=== PATIENT | male | born 1930 | race Hispanic/Latino ===

== ENCOUNTER 2021-08-16 17:07 | Emergency (ER) | payer OTHER ==
[~2021-08-16] VITALS: Ht 172.7 cm; Wt 65.8 kg
[2021-08-16 17:12] VITALS: BP 169/83
[2021-08-16 17:55] LABS: APPEARANCE,URINE CLOUDY (CLEAR); BILIRUBIN,URINE NEGATIVE (NEGATIVE); COLOR,URINE ORANGE (YELLOW); GLUCOSE, URINE (UA) NEGATIVE (NEGATIVE); KETONES,URINE NEGATIVE (NEGATIVE); LEUKOCYTE ESTERASE ,URINE NEGATIVE (NEGATIVE); NITRATE,URINE NEGATIVE (NEGATIVE); OCCULT BLOOD,URINE MODERATE (NEGATIVE); PROTEIN,URINE TRACE mg/dL (NEGATIVE); UROBILINOGEN,URINE 0.2 mg/dL (0.2-1.0)
[2021-08-16 18:02] LABS: BACTERIA,URINE Few /HPF (None Seen); RBC,URINE >100 /HPF (0-1); SQUAMOUS EPITHELIAL CELL,UR Rare /HPF (0-2)
== END 2021-08-16 18:34 | disposition home or self-care (01) ==
LOC: EDH 17:07
DX: R33.9 Retention of urine, unspecified (principal); Z88.0 Allergy status to penicillin; Z90.89 Acquired absence of other organs; Z90.49 Acquired absence of other specified parts of digestive tract; Z98.890 Other specified postprocedural states
CPT/HCPCS: 81001

== ENCOUNTER 2021-10-19 12:09 | Observation (INO) | payer OTHER ==
[~2021-10-19] VITALS: Ht 172.7 cm; Wt 60.2 kg
[2021-10-19 12:34] LABS: BASOPHILS % (AUTO) 0.4 % (0.0-5.0); EOSINOPHILS % (AUTO) 1.9 % (0.0-8.0); HEMATOCRIT 36.7 % (42-54); LYMPHOCYTES % (AUTO) 21.5 % (21.0-51.0); MEAN CORPUSCULAR HEMOGLOBIN 28.8 pg (27.0-33.0); MEAN CORPUSCULAR HGB CONC 31.9 g/dL (32.0-36.0); MEAN CORPUSCULAR VOLUME 90.4 fL (79-99); MONOCYTES % (AUTO) 17.3 % (3.0-13.0); NEUTROPHILS % (AUTO) 58.7 % (40.0-77.0); PLATELET COUNT (AUTO) 150 K/uL (130-400); RED BLOOD CELL COUNT(AUTO) 4.06 MIL/uL (4.50-6.20); RED CELL DISTRIBUTION WIDTH 13.7 % (11.0-15.5); WHITE BLOOD COUNT (AUTO) 5.2 K/uL (4.8-10.8)
[2021-10-19 12:44] LABS: POTASSIUM 5.8 mmol/L (3.5-5.1)
[2021-10-19 12:49] LABS: ALBUMIN 3.4 g/dL (3.5-5.0); TOTAL PROTEIN, SERUM 7.4 g/dL (6.0-8.3)
[2021-10-19] MEDS ORDERED: 0.9% NACL 500ML IV.SOLN 500 ML IV ONE (13:30)
[2021-10-19] MEDS ORDERED: NA ZIRCON CYCLOSIL(LOKELMA 10GM) PO ONE (13:30)
[2021-10-19 14:00] LABS: APPEARANCE,URINE CLEAR (CLEAR); BILIRUBIN,URINE NEGATIVE (NEGATIVE); COLOR,URINE YELLOW (YELLOW); GLUCOSE, URINE (UA) NEGATIVE (NEGATIVE); KETONES,URINE NEGATIVE (NEGATIVE); LEUKOCYTE ESTERASE ,URINE SMALL (NEGATIVE); NITRATE,URINE POSITIVE (NEGATIVE); OCCULT BLOOD,URINE NEGATIVE (NEGATIVE); PROTEIN,URINE NEGATIVE (NEGATIVE); UROBILINOGEN,URINE 0.2 mg/dL (0.2-1.0)
[2021-10-19 14:08] LABS: BACTERIA,URINE Rare /HPF (None Seen); RBC,URINE 0-1 /HPF (0-1); SQUAMOUS EPITHELIAL CELL,UR Rare /HPF (0-2); WBC,URINE 0-1 /HPF (0-1)
[2021-10-19] MEDS ORDERED: ONDANSETRON 4MG INJ IVP PRN (15:00)
[2021-10-19] MEDS ORDERED: HYDRALAZINE 20MG/ML VIAL IV PRN (15:00)
[2021-10-19] MEDS ORDERED: ACETAMINOPHEN 325 MG TAB PO PRN (15:00)
[2021-10-19] MEDS ORDERED: ALBUTEROL 0.083% 2.5 MG/3 ML INH IH PRN (15:00)
[2021-10-19] MEDS ORDERED: LACTULOSE 20 GM/30 ML UDCUP PO PRN (15:00)
[2021-10-19] MEDS ORDERED: KAYEXALATE 15GM/60ML PO PRN (15:00)
[2021-10-19] MEDS ORDERED: LABETALOL 20MG SYG IV PRN (15:00)
[2021-10-19] MEDS: DOXYCYCLINE 100MG+NS 250ML IV SCH ×3 (15:30→16:22)
[2021-10-19] MEDS: INSULIN HUMULIN R 100 UNIT/ML 3ML SQ SCH ×2 (16:20→21:00)
[2021-10-19 19:30] VITALS: BP 138/46
[2021-10-19] MEDS: SODIUM BICARBONATE 650 MG TAB PO SCH (21:53)
[2021-10-19 23:00] VITALS: BP 130/56
[2021-10-20] MEDS ORDERED: 0.9% NACL 250ML 250 ML ONE (03:09)
[2021-10-20] MEDS: DOXYCYCLINE 100MG+NS 250ML IV SCH (03:19)
[2021-10-20 04:30] VITALS: BP 122/53
[2021-10-20 05:17] LABS: BASOPHILS % (AUTO) 0.5 % (0.0-5.0); EOSINOPHILS % (AUTO) 3.8 % (0.0-8.0); HEMATOCRIT 32.5 % (42-54); LYMPHOCYTES % (AUTO) 21.2 % (21.0-51.0); MEAN CORPUSCULAR HEMOGLOBIN 29.1 pg (27.0-33.0); MONOCYTES % (AUTO) 18.8 % (3.0-13.0); NEUTROPHILS % (AUTO) 55.2 % (40.0-77.0); PLATELET COUNT (AUTO) 132 K/uL (130-400); RED BLOOD CELL COUNT(AUTO) 3.57 MIL/uL (4.50-6.20); RED CELL DISTRIBUTION WIDTH 13.8 % (11.0-15.5); WHITE BLOOD COUNT (AUTO) 6.6 K/uL (4.8-10.8)
[2021-10-20 05:31] LABS: CREATININE 1.8 mg/dL (0.5-1.5); MAGNESIUM 1.8 mg/dL (1.80-2.40); PHOSPHORUS 3.1 mg/dL (2.5-4.9); POTASSIUM 5.8 mmol/L (3.5-5.1)
[2021-10-20] MEDS ORDERED: INSULIN HUMULIN R 100 UNIT/ML 3ML IV ONE (06:51)
[2021-10-20] MEDS: INSULIN HUMULIN R 100 UNIT/ML 3ML SQ SCH ×4 (06:53→21:00)
[2021-10-20] MEDS ORDERED: DEXTROSE 50%-WATER 50 ML DISP.SYRIN IV ONE (07:00)
[2021-10-20 07:29] VITALS: BP 128/52
[2021-10-20] MEDS: PANTOPRAZOLE 40 MG TAB DR PO SCH (08:12)
[2021-10-20] MEDS: SODIUM BICARBONATE 650 MG TAB PO SCH ×2 (08:12→20:39)
[2021-10-20] MEDS: TAMSULOSIN HCL 0.4 MG CAP.ER.24H PO SCH (08:13)
[2021-10-20] MEDS: Vitamin B Complex/Vit C/Folic Acid PO SCH (08:14)
[2021-10-20] MEDS: SODIUM BICARB 50MEQ 50ML VIAL IV SCH (08:18)
[2021-10-20] MEDS ORDERED: ENAL10TA18 PO (11:01)
[2021-10-20] MEDS ORDERED: CHOL100046 PO (11:03)
[2021-10-20] MEDS ORDERED: AMYL1CAP63 PO (11:04)
[2021-10-20] MEDS ORDERED: OMEP20CA12 PO (11:04)
[2021-10-20 12:00] VITALS: BP 115/56
[2021-10-20] MEDS: 0.9%NACL 1000ML 1,000 ML IV SCH ×3 (12:09→20:40)
[2021-10-20] MEDS: LIPASE/PROTEASE/AMYLASE 5000/17000/24000 PO SCH ×2 (12:09→15:35)
[2021-10-20] MEDS: OMEPRAZOLE 20 MG PO SCH ×2 (12:10→15:35)
[2021-10-20 16:00] VITALS: BP 133/77
[2021-10-20 20:13] VITALS: BP 116/52
[2021-10-20 23:56] VITALS: BP 135/59
[2021-10-21] MEDS: DOXYCYCLINE 100MG+NS 250ML IV SCH (03:00)
[2021-10-21 04:18] VITALS: BP 140/56
[2021-10-21 04:52] LABS: BASOPHILS % (AUTO) 0.6 % (0.0-5.0); EOSINOPHILS % (AUTO) 3.4 % (0.0-8.0); HEMATOCRIT 33.5 % (42-54); MEAN CORPUSCULAR HEMOGLOBIN 29.2 pg (27.0-33.0); MEAN CORPUSCULAR HGB CONC 32.5 g/dL (32.0-36.0); MEAN CORPUSCULAR VOLUME 89.8 fL (79-99); MONOCYTES % (AUTO) 14.2 % (3.0-13.0); NEUTROPHILS % (AUTO) 60.6 % (40.0-77.0); PLATELET COUNT (AUTO) 128 K/uL (130-400); RED BLOOD CELL COUNT(AUTO) 3.73 MIL/uL (4.50-6.20); RED CELL DISTRIBUTION WIDTH 13.6 % (11.0-15.5); WHITE BLOOD COUNT (AUTO) 6.5 K/uL (4.8-10.8)
[2021-10-21 05:15] LABS: ALBUMIN 2.6 g/dL (3.5-5.0); CREATININE 1.5 mg/dL (0.5-1.5); MAGNESIUM 1.6 mg/dL (1.80-2.40); PHOSPHORUS 2.9 mg/dL (2.5-4.9); POTASSIUM 4.4 mmol/L (3.5-5.1)
[2021-10-21] MEDS: INSULIN HUMULIN R 100 UNIT/ML 3ML SQ SCH ×2 (06:20→11:30)
[2021-10-21] MEDS: SODIUM BICARB 50MEQ 50ML VIAL IV SCH (07:00)
[2021-10-21] MEDS: OMEPRAZOLE 20 MG PO SCH ×2 (08:00→12:00)
[2021-10-21] MEDS ORDERED: ENALAPRIL MALEATE 10 MG TABLET PO SCH (09:00)
[2021-10-21] MEDS ORDERED: **HM**(Cholecalciferol (Vitamin D3) (Vitamin D3) 25 MCG PO SCH (09:00)
[2021-10-21 09:16] VITALS: BP 134/62
[2021-10-21] MEDS: PANTOPRAZOLE 40 MG TAB DR PO SCH (09:46)
[2021-10-21] MEDS: SODIUM BICARBONATE 650 MG TAB PO SCH (09:46)
[2021-10-21] MEDS: TAMSULOSIN HCL 0.4 MG CAP.ER.24H PO SCH (09:47)
[2021-10-21] MEDS: LIPASE/PROTEASE/AMYLASE 5000/17000/24000 PO SCH ×2 (09:47→12:39)
[2021-10-21] MEDS ORDERED: MAGNESIUM 2GM PREMIX 50ML 50 ML IV PRN (10:00)
[2021-10-21] MEDS: Vitamin B Complex/Vit C/Folic Acid PO SCH (10:58)
[2021-10-21 12:41] VITALS: BP 148/64
[2021-10-21] MEDS ORDERED: AMLO-257 PO (12:52)
[2021-10-21] MEDS ORDERED: DOXY100T21 PO (13:00)
== END 2021-10-21 17:00 | disposition home or self-care (01) ==
LOC: EDH 12:09 → EDHIP 14:40 → 3CH 18:15
PROVIDERS: ADMIT Internal Medicine Critical Care Medicine; ATTEND Internal Medicine Critical Care Medicine
DX: E87.5 Hyperkalemia (principal); N17.9 Acute kidney failure, unspecified; N39.0 Urinary tract infection, site not specified; I10 Essential (primary) hypertension; N40.0 Benign prostatic hyperplasia without lower urinary tract symptoms; Z85.07 Personal history of malignant neoplasm of pancreas; Z79.899 Other long term (current) drug therapy; Z87.891 Personal history of nicotine dependence
CPT/HCPCS: 96376; 96365; 96366 ×3; 99284; 80053 ×2; 85025 ×3; 87077; 87088; 87186; 82948 ×8; 81001; 36415 ×3; 76770; 93005; 96361 ×2; 96375; 83735 ×2; 84100 ×2; 84132; 80048; 96367; G0378 ×50; J7040; J3490 ×3; J7030 ×2; J7070; J7050; J3475